=== PATIENT | female | born 2000 | race Caucasian/White ===

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

== ENCOUNTER 2021-08-21 00:58 | Emergency (ER) | payer BC ==
[2021-08-21 01:09] VITALS: BP 124/80; PULSE 99; RESP 18; TEMP 98.4
--- NOTE | 2021-08-21 01:32 | XR ---
EXAMINATION TYPE: XR foot complete RT DATE OF EXAM: 08/21/2021 COMPARISON: NONE HISTORY: Foot pain TECHNIQUE: 3 views FINDINGS: Metatarsals are intact. I see no fracture nor dislocation. The toes appear intact. Joint sp aces are normal. IMPRESSION: Negative right foot exam. No fracture seen.
[2021-08-21] MEDS ORDERED: IBUPROFEN 600 MG TAB PO STA (01:51)
[2021-08-21] MEDS ORDERED: ACETAMINOPHEN TAB 500 MG TAB PO STA (01:51)
--- NOTE | 2021-08-21 01:52 | ED ---
Lower Extremity Injury HPI - General Chief Complaint: Extremity Injury, Lower Stated Complaint: RT foot injury Time Seen by Provider: 08/21/21 01:19 Source: patient Mode of arrival: wheelchair Limitations: no limitations - History of Present Illness Initial Comments: 20-year-old female patient presented to the emergency department today for evaluation of right foot pain and swelling. States injury occurred a few hours prior to arrival. States she was trying to dance when she twisted her foot and fell. Denies hitting her head or losing consciousness. Denies any neck or back pain. States that the foot swelled up. Denies taking anything for pain. Denies previous injury to the foot. Denies any ankle or leg pain. - Related Data Previous Rx's Medication Instructions Recorded Ibuprofen [Motrin] 600 mg PO Q8HR PRN #30 tab 08/21/21 Allergies Allergy/AdvReac Type Severity Reaction Status Date / Time No Known Allergies Allergy Verified 08/21/21 01:05 Review of Systems ROS Statement: Those systems with pertinent positive or pertinent negative responses have been documented in the HPI. ROS Other: All systems not noted in ROS Statement are negative. Past Medical History Past Medical History: No Reported History Additional Past Medical History / Comment(s): heart murmur History of Any Multi-Drug Resistant Organisms: None Reported Past Surgical History: Tonsillectomy Past Psychological History: No Psychological Hx Reported Smoking Status: Vaper Past Alcohol Use History: Occasional Past Drug Use History: None Reported General Exam Limitations: no limitations General appearance: alert, in no apparent distress, other (This is a well- developed, well-nourished adult female in no acute distress.) Head exam: Present: atraumatic, normocephalic, normal inspection Eye exam: Present: normal appearance, PERRL, EOMI. Absent: scleral icterus, conjunctival injection, nystagmus, periorbital swelling Neck exam: Present: normal inspection, full ROM, other (Nontender, no step-off, no deformity to firm midline palpation of the posterior cervical spine. Full range of motion without pain or limitation.). Absent: tenderness, meningismus, lymphadenopathy Respiratory exam: Present: normal lung sounds bilaterally. Absent: respiratory distress, wheezes, rales, rhonchi, stridor Cardiovascular Exam: Present: regular rate, normal rhythm, normal heart sounds. Absent: systolic murmur, diastolic murmur, rubs, gallop, clicks Extremities exam: Present: full ROM, normal capillary refill, other (Right foot soft tissue swelling noted over the dorsal aspect. There is mild ecchymosis noted. Skin is otherwise pink, warm, dry. Cap refill less than 3 seconds. Pedal and posttibial pulses 2+.). Absent: normal inspection, tenderness, pedal edema, joint swelling, calf tenderness Neurological exam: Present: alert, oriented X3, CN II-XII intact Psychiatric exam: Present: normal affect, normal mood Skin exam: Present: warm, dry, intact, normal color. Absent: rash Course Vital Signs 08/21/21 01:06 Temperature 98.4 F Pulse Rate 99 Respiratory 18 Rate Blood Pressure 124/80 O2 Sat by Pulse 100 Oximetry Medical Decision Making - Medical Decision Making 20-year-old female patient presented for evaluation of right foot injury. Physical examination did reveal soft tissue swelling or she is able to bear weight. Neurovascular status is intact. X-ray was obtained and was negative. Symptoms are consistent with foot sprain. She is given Stephane wrap. Educated regarding rest, ice, elevation. She is instructed to follow-up with orthopedics if her symptoms do not improve after one week. Return parameters were discussed in detail. She verbalizes understanding and agrees with this plan. My attending is Dr. Chavez. - Radiology Data Radiology results: report reviewed, image reviewed 3 views of the right foot are obtained. Report was reviewed in its entirety. Impression by Dr. Villafuerte shows negative right foot examined. No fracture seen. Disposition Clinical Impression: Sprain of right foot Disposition: HOME SELF-CARE Condition: Good Instructions (If sedation given, give patient instructions): Foot Sprain (ED) Additional Instructions: Rest, ice, elevate the foot. Follow-up with your primary care physician for recheck in 1-2 days. Follow-up with orthopedics if her symptoms are not improved after 1 week. Return to the emergency department for any new, worsening, or concerning symptoms. Prescriptions: Ibuprofen [Motrin] 600 mg PO Q8HR PRN #30 tab PRN Reason: Pain Is patient prescribed a controlled substance at d/c from ED?: No Referrals: Nelson Chakraborty MD [Primary Care Provider] - 1-2 days Jeniffer Crawley DO [Doctor of Osteopathic Medicine] - 1-2 days Time of Disposition: 01:52
== END 2021-08-21 02:11 | disposition home or self-care (01) ==
LOC: EC 00:58
DX: S93.601A Unspecified sprain of right foot, initial encounter (principal); F17.290 Nicotine dependence, other tobacco product, uncomplicated; Z72.89 Other problems related to lifestyle; W19.XXXA Unspecified fall, initial encounter; Y93.41 Activity, dancing
CPT/HCPCS: 99283